=== PATIENT | female | born 1935 | race Caucasian/White ===

== ENCOUNTER 2020-02-27 13:58 | Inpatient (IN) | payer MEDICARE, MEDICAID ==
[~2020-02-27] VITALS: Ht 157.5 cm; Wt 68.0 kg
[2020-02-27 14:09] VITALS: BP 134/57
--- NOTE | 2020-02-27 14:28 | Emergency Room Report ---
History of Present Illness General Chief Complaint: Abnormal Labs Source: Patient, Family Member Present Illness HPI Patient sent to the emergency department from [facility] office. Apparently her potassium was 6 and her bicarbonate was low. Apparently she has been having some deterioration over the month. She denies any chest pain or shortness of breath. She does complain about mid back pain where she has a vertebral body fracture from a fall. This was diagnosed by an MRI. She fell a year ago in November. Apparently she has had some mild renal insufficiency before but not this severe. Patient is diabetic on oral medication. She also has hypertension. Hyperlipide glen. The patient denies exposure to Covid positive contacts. No fevers, chills, sore throat, palpitations, nausea, vomiting, diarrhea, dysuria, abdominal pain, rashes, depression, anxiety, visual changes, dizziness, headache. Allergies: Coded Allergies: No Known Allergies (Unverified , 02/27/20) COVID-19 Screening Contact w/high risk pt: No Experienced COVID-19 symptoms?: No COVID-19 Testing performed CROTCH BREAKER: Yes - Nov 2019 COVID-19 Screening: Negative COVID-19 COVID-19 Testing Source: [employer] Patient History Past Medical History: see triage record, other - Vertebral body fracture Past Surgical History: PTCA Social History: Denies: smoking, alcohol use, drug use Social History Narrative With daughter Reviewed Nursing Documentation: PMH: Agreed; PSxH: Agreed Nursing Documentation-PM Past Medical History: No History, Except For Hx Cardiac Problems: Yes - Stene 11/2019 Hx Hypertension: Yes Hx Pacemaker: No Hx Asthma: No Hx COPD: No Hx Diabetes: Yes Hx Cancer: No Hx Gastrointestinal Problems: No Hx Dialysis: No History Of Psychiatric Problem: No Hx Neurological Problems: No Hx Cerebrovascular Accident: No Hx Seizures: No Review of Systems All Other Systems: negative except mentioned in HPI Physical Exam Vital Signs Date Time Temp Pulse Resp B/P (MAP) Pulse Ox O2 Delivery O2 Flow Rate FiO2 02/27/20 14:01 98.4 65 14 134/57 (82) 97 Room Air Sp02 EP Interpretation: reviewed, normal General Appearance: well appearing, no apparent distress, GCS 15 Head: normocephalic Eyes: bilateral eye normal inspection, bilateral eye PERRL, bilateral eye EOMI ENT: moist mucus membranes - Slightly dry Neck: supple Respiratory: lungs clear, normal breath sounds Cardiovascular #1: regular rate, rhythm, no edema Cardiovascular #2: 2+ radial (R) Gastrointestinal: normal inspection, normal bowel sounds, non tender, no mass, non-distended Musculoskeletal: back normal - Mid back tenderness, normal range of motion, g ait/station normal Neurologic: alert, oriented x3, grossly normal Psychiatric: mood/affect normal Skin: no rash, warm/dry Procedures Critical Care Time Critical Care Time Total Critical Care Time: 30 min bedside evaluation and treatment excludes procedures (EKG). Reason for critical care: Hyperkalemia, metabolic acidosis, renal failure Possible complications: hypotension, hypertension, RI, shock, arrhythmias, metabolic acidosis, end organ damage, respiratory failure. Interventions: Treatment of hyperkalemia, evaluation of medications with pharmacy, discussions with family, repeat evaluations Course: Patient presents with possible electrolyte abnormalities. Determined to have significant hyperkalemia and metabolic acidosis. Hyperkalemia treated. Discussion with family regarding medications and previous medical conditions. Discussion with pharmacy regarding her medications possibly causing hyperkalemia and metabolic acidosis. Repeat evaluation, discussion with admitting physician. Consultations: nursing staff, multiple discussions with family, discussion with pharmacy, discussion with admitting physician Performed by: Dr. Winter Tolerated well condition = serious Medical Decision Making Diagnostic Impression: Primary Impression: Hyperkalemia Additional Impressions: Acute renal failure Qualified Codes: N17.9 - Acute kidney failure, unspecified Metabolic acidosis ER Course Patient presents with alleged abnormal labs. Patient appears somewhat dehydrated at this time. Differential includes acute renal failure, chronic renal failure, metabolic acidosis for other reasons amongst others. Evaluation with EKG, chest x-ray and labs. Renal ultrasound will be ordered. Patient appears slightly dry at this time and we will give her IV hydration. She has chronic back pain from a vertebral body fracture. Tylenol will be administered. EKG normal sinus rhythm and normal EKG. No peak T waves noted. Rate of 63. Chest x-ray normal. Called with K = 6.1. Bicarb also low. pH = 7.17. Calcium, bicarb and Kayexelate ordered. BUN 33 creat 1.6. With minimal renal dysfunction, consider medication cause. Discussed with Dr. Bowie, pharmacist and daughter. Daughter does not know why taking cyclosporine. 1655 Improved with treatment. No ectopy noted on panel monitor. Laboratory Tests Test 02/27/20 14:30 02/27/20 14:35 02/27/20 14:41 Urine Color Pale yellow Urine Appearance Clear Urine pH 5 (4.5-8.0) Urine Specific [place] 1.010 (1.005-1.035) Urine Protein 1+ (NEGATIVE) H Urine Glucose (UA) Negative (NEGATIVE) Urine Ketones Negative (NEGATIVE) Urine Blood Negative (NEGATIVE) Urine Nitrite Negative (NEGATIVE) Urine Bilirubin Negative (NEGATIVE) Urine Urobilinogen Normal MG/DL (0.0-1.0) Urine Leukocyte Esterase Negative (NEGATIVE) Urine RBC 0-2 /HPF (0 - 2) Urine WBC 0-2 /HPF (0 - 2) Urine Squamous Epithelial Cells Occasional /LPF Urine Bacteria Occasional /HPF (NONE) Urine Random Sodium 43 mmol/L (20-110) Urine Creatinine 59.3 MG/DL (30.0-125.0) White Blood Count 6.6 K/UL (4.8-10.8) Red Blood Count 3.07 M/UL (4.20-5.40) L Hemoglobin 9.2 G/DL (12.0-16.0) L Hematocrit 30.9 % (37.0-47.0) L Mean Corpuscular Volume 101 FL (80-99) H Mean Corpuscular Hemoglobin 30.0 PG (27.0-31.0) Mean Corpuscular Hemoglobin Concent 29.8 G/DL (32.0-36.0) L Red Cell Distribution Width 15.8 % (11.6-14.8) H Platelet Count 166 K/UL (150-450) Mean Platelet Volume 6.8 FL (6.5-10.1) Neutrophils (%) (Auto) 60.6 % (45.0-75.0) Lymphocytes (%) (Auto) 28.7 % (20.0-45.0) Monocytes (%) (Auto) 10.0 % (1.0-10.0) Eosinophils (%) (Auto) 0.0 % (0.0-3.0) Basophils (%) (Auto) 0.7 % (0.0-2.0) Prothrombin Time 11.2 SEC (9.30-11.50) Prothrombin Time INR 1.0 (0.9-1.1) Activated Partial Thromboplast Time 26 SEC (23-33) Sodium Level 135 MMOL/L (136-145) L Potassium Level 6.1 MMOL/L (3.5-5.1) *H Chloride Level 110 MMOL/L (98-107) H Carbon Dioxide Level 11 MMOL/L (21-32) L Anion Gap 14 mmol/L (5-15) Blood Urea Nitrogen 33 mg/dL (7-18) H Creatinine 1.6 MG/DL (0.55-1.30) H Estimated Glomerular Filtration Rate 30.9 mL/min (>60) Glucose Level 104 MG/DL (74-106) Calcium Level 8.6 MG/DL (8.5-10.1) Total Bilirubin 0.3 MG/DL (0.2-1.0) Aspartate Amino Transferase (AST) 13 U/L (15-37) L Alanine Aminotransferase (ALT) 18 U/L (12-78) Alkaline Phosphatase 51 U/L (46-116) Total Creatine Kinase 19 U/L (26-308) L Troponin I 0.002 ng/mL (0.000-0.056) C-Reactive Protein, Quantitative 0.9 mg/dL (0.00-0.90) Pro-B-Type Natriuretic Peptide 574 pg/mL (0-125) H Total Protein 7.3 G/DL (6.4-8.2) Albumin 3.8 G/DL (3.4-5.0) Globulin 3.5 g/dL Albumin/Globulin Ratio 1.1 (1.0-2.7) Lipase 321 U/L (73-393) Venous Blood pH 7.170 Venous Blood Partial Pressure CO2 27.7 Venous Blood Partial Pressure O2 24.5 Venous Blood HCO3 9.9 Venous Blood Total Carbon Dioxide 27.7 Venous Blood Base Excess -17.2 Venous Blood Carboxyhemoglobin 0.7 % (0.5-1.5) Methemoglobin 0.6 EKG Diagnostic Results Rate: normal Rhythm: NSR ST Segments: no acute changes Rhythm Strip Diag. Results EP Interpretation: yes Rhythm: NSR, no PVC's, no ectopy Chest X-Ray Diagnostic Results Chest X-Ray Diagnostic Results : Chest X-Ray Ordered: Yes # of Views/Limited/Complete: 1 View Indication: Other EP Interpretation: Yes Interpretation: no consolidation, no effusion, no pneumothorax Impression: No acute disease Electronically Signed by: Electronically signed by Guilherme Winter MD Last Vital Signs Date Time Temp Pulse Resp B/P (MAP) Pulse Ox O2 Delivery O2 Flow Rate FiO2 02/28/20 00:00 98.5 71 20 142/54 (83) 98 02/27/20 21:00 Room Air Status: improved Disposition: ADMITTED INPATIENT Condition: Serious Guilherme Winter MD Feb 27, 2020 14:28
[2020-02-27 14:46] LABS: BASOPHILS % (AUTO) 0.7 % (0.0-2.0); HEMATOCRIT 30.9 % (37.0-47.0); HEMOGLOBIN 9.2 G/DL (12.0-16.0); LYMPHOCYTES % (AUTO) 28.7 % (20.0-45.0); MEAN CORPUSCULAR VOLUME 101 FL (80-99); NEUTROPHILS % (AUTO) 60.6 % (45.0-75.0); PLATELET COUNT 166 K/UL (150-450); RED BLOOD COUNT 3.07 M/UL (4.20-5.40); RED CELL DISTRIBUTION WIDTH 15.8 % (11.6-14.8); WHITE BLOOD COUNT 6.6 K/UL (4.8-10.8)
[2020-02-27 15:10] LABS: ALANINE AMINOTRANSFERASE 18 U/L (12-78); ALBUMIN 3.8 G/DL (3.4-5.0); ALBUMIN/GLOBULIN RATIO 1.1 (1.0-2.7); ALKALINE PHOSPHATASE 51 U/L (46-116); ANION GAP 14 mmol/L (5-15); ASPARTATE AMINO TRANSFERASE 13 U/L (15-37); BILIRUBIN,TOTAL 0.3 MG/DL (0.2-1.0); BLOOD UREA NITROGEN 33 mg/dL (7-18); CALCIUM 8.6 MG/DL (8.5-10.1); CARBON DIOXIDE 11 MMOL/L (21-32); CHLORIDE 110 MMOL/L (98-107); CREATINE KINASE 19 U/L (26-308); CREATININE 1.6 MG/DL (0.55-1.30); SODIUM 135 MMOL/L (136-145)
[2020-02-27 15:11] LABS: POTASSIUM 6.1 MMOL/L (3.5-5.1)
[2020-02-27] MEDS ORDERED: Sodium Polystyrene Sulfonate 15gm Powder ORAL ONE (15:15)
[2020-02-27] MEDS ORDERED: Sodium Bicarbonate 50ml Carp IV ONE (15:15)
[2020-02-27] MEDS ORDERED: Calcium Gluconate 1gm/10ml vial IVP ONE (15:15)
[2020-02-27 15:18] LABS: APPEARANCE,URINE CLEAR; BILIRUBIN, URINE NEGATIVE (NEGATIVE); COLOR,URINE PALE YELLOW; GLUCOSE, URINE (UA) NEGATIVE (NEGATIVE); KETONES,URINE NEGATIVE (NEGATIVE); LEUKOCYTE ESTERASE ,URINE NEGATIVE (NEGATIVE); NITRITE,URINE NEGATIVE (NEGATIVE); PH,URINE 5 (4.5-8.0); PROTEIN,URINE 1+ (NEGATIVE); UROBILINOGEN,URINE NORMAL MG/DL (0.0-1.0)
[2020-02-27] MEDS ORDERED: DOCUSATE SODIU250 MG ORAL (15:18)
[2020-02-27] MEDS ORDERED: METOPROLOL TART25 MG ORAL (15:18)
[2020-02-27] MEDS ORDERED: ALLOPURINOL300 M1 ORAL (15:18)
[2020-02-27] MEDS ORDERED: NOVOLIN 70100 UNIT/2 SQ (15:18)
[2020-02-27] MEDS ORDERED: ATORVASTATIN CA40 MG ORAL (15:18)
[2020-02-27] MEDS ORDERED: RESTASIS1 EACH BOTH EYES (15:18)
[2020-02-27] MEDS ORDERED: IBUPROFEN600 M1 ORAL (15:29)
[2020-02-27] MEDS ORDERED: TRIBENZOR 40-11 EAC1 ORAL (15:29)
[2020-02-27] MEDS ORDERED: GABAPENTIN100 MG ORAL (15:29)
[2020-02-27] MEDS ORDERED: HYDRALAZINE HCL25 M1 ORAL (15:29)
[2020-02-27] MEDS ORDERED: Potassium chloride (15:29)
[2020-02-27] MEDS ORDERED: JANUMET 50-5001 EACH ORAL (15:29)
[2020-02-27] MEDS ORDERED: MEGESTROL ACETA40 MG PO (15:29)
[2020-02-27] MEDS ORDERED: PLAVIX75 MG ORAL (15:29)
[2020-02-27] MEDS ORDERED: K-TAB ER8 MEQ PO (15:29)
--- NOTE | 2020-02-27 16:51 | Diagnostic Imaging Report ---
Indication: Acute renal failure, right flank pain Technique: Grayscale and duplex images of the kidneys, retroperitoneum, and bladder were obtained. Comparison: none Findings: Right kidney measures 10.1 cm in length. Left kidney measures 10 point cm in length. Both kidneys demonstrate normal echogenicity. . Multiple cysts are seen in the right kidney. No focal abnormality. Normal inferior vena cava. Bladder is normal. Impression: Essentially unremarkable exam. Negative for hydronephrosis Incidental finding of right renal cysts.
--- NOTE | 2020-02-27 16:52 | History & Physical ---
History and Physical History & Physicial Patient presents to ER with severe metabolic acidosis. Patient fairly asymptomatic but noted to have elevated K and given kayexalate with some improvement. Repeat BMP demonstrated worsening acidosis and now being admitted for metabolic acidosis. Notes significant back pain as well and has compression fractures. No Alcohol use noted. no fevers. NO vomiting noted. No diarrhea. patient cared for by her daughter. care noted and reviewed Active Medications: IBUPROFEN 600 MG ORAL TABLET (IBUPROFEN) as needed JANUMET 50-500 MG ORAL TABLET (SITAGLIPTIN-METFORMIN HCL) Take one tablet daily POTASSIUM TABLET (POTASSIUM TABS) Take one tablet daily GABAPENTIN 100 MG ORAL CAPSULE (GABAPENTIN) Take one tablet daily CLOPIDOGREL BISULFATE 75 MG ORAL TABLET (CLOPIDOGREL BISULFATE) Take one tablet daily HYDRALAZINE HCL 25 MG ORAL TABLET (HYDRALAZINE HCL) Take one tablet daily [id number] 40-10-25 MG ORAL TABLET (YZQTBSTIPY-FBGUQXWROS-ZRSI) Take one tablet daily MEGESTROL ACETATE 40 MG ORAL TABLET (MEGESTROL ACETATE) Take one tablet daily DOCUSATE SODIUM 250 MG ORAL CAPSULE (DOCUSATE SODIUM) Take one tablet daily ATORVASTATIN CALCIUM 80 MG ORAL TABLET (ATORVASTATIN CALCIUM) Take one tablet daily METOPROLOL TARTRATE 25 MG ORAL TABLET (METOPROLOL TARTRATE) Take one tablet daily NOVOLIN 70/30 (70-30) 100 UNIT/ML SUBCUTANEOUS SUSPENSION (INSULIN NPH ISOPHANE & REGULAR) VITAMIN D TABLET (CHOLECALCIFEROL TABS) Take one tablet daily ALLOPURINOL 300 MG ORAL TABLET (ALLOPURINOL) Take one tablet daily Current Allergies: No known allergies No Known Drug Allergies Past History Past Medical History: hypertension diabetic stent Surgical History: right hand surgery-2012 Family History: Mother natural causes Father stroke Social History: , 4 children, lives in [place] with , no pets, retired. Risk Factors: Smoked Tobacco Use: Never smoker Caffeine Use: 2 drinks per day Dietary Counseling: yes Alcohol Use: no Drug Use: no Review of Systems General: fatigue Eyes: denies blurring, diplopia, irritation, discharge, vision loss, eye pain, photophobia Cardiovascular: has stents for CAD; under care of cardiology Musculoskeletal: back pain pain with activity Skin: denies rash, itching, dryness, suspicious lesions Neurologic: The patient was assessed for fall risk today. The patient was found to be at risk for falls. Patient was educated on methods for fall prevention, including use of proper footwear, keeping pathways clear, use of assistive devices and rising slowing when transitioning from the sitting position to standing. Psychiatric: denies depression, anxiety, memory loss, mental disturbance, suicidal ideation, hallucinations, paranoia Endocrine: denies cold intolerance, heat intolerance, polydipsia, polyphagia, polyuria, weight change Physical Exam General Appearance: well nourished, well hydrated, no acute distress Ear, Nose &Throat External Ears: normal, no lesions or deformities External Nose: normal, no lesions or deformities Neck Neck Exam: supple, no masses, trachea midline Thyroid Exam: no nodules, masses, tenderness, or enlargement Respiratory Respiratory Effort: no intercostal retractions or use of accessory muscles Palpation: normal fremitus Auscultation: no rales, rhonchi, or wheezes Cardiovascular Palpation: no thrill or palpable murmurs, no displacement of PMI Auscultation: S1, S2, no murmur, rub, or gallop Musculoskeletal Gait and Station: uses cane unsteady and weak Spine, ribs, pelvis: mid back pain noted with any activity and ROM Labs Test 02/27/20 14:30 02/27/20 14:35 02/27/20 14:41 Urine Color Pale yellow Urine Appearance Clear Urine pH 5 (4.5-8.0) Urine Specific [place] 1.010 (1.005-1.035) Urine Protein 1+ (NEGATIVE) Urine Glucose (UA) Negative (NEGATIVE) Urine Ketones Negative (NEGATIVE) Urine Blood Negative (NEGATIVE) Urine Nitrite Negative (NEGATIVE) Urine Bilirubin Negative (NEGATIVE) Urine Urobilinogen Normal MG/DL (0.0-1.0) Urine Leukocyte Esterase Negative (NEGATIVE) Urine RBC 0-2 /HPF (0 - 2) Urine WBC 0-2 /HPF (0 - 2) Urine Squamous Epithelial Cells Occasional /LPF Urine Bacteria Occasional /HPF (NONE) Urine Random Sodium 43 mmol/L (20-110) Urine Creatinine 59.3 MG/DL (30.0-125.0) White Blood Count 6.6 K/UL (4.8-10.8) Red Blood Count 3.07 M/UL (4.20-5.40) Hemoglobin 9.2 G/DL (12.0-16.0) Hematocrit 30.9 % (37.0-47.0) Mean Corpuscular Volume 101 FL (80-99) Mean Corpuscular Hemoglobin 30.0 PG (27.0-31.0) Mean Corpuscular Hemoglobin Concent 29.8 G/DL (32.0-36.0) Red Cell Distribution Width 15.8 % (11.6-14.8) Platelet Count 166 K/UL (150-450) Mean Platelet Volume 6.8 FL (6.5-10.1) Neutrophils (%) (Auto) 60.6 % (45.0-75.0) Lymphocytes (%) (Auto) 28.7 % (20.0-45.0) Monocytes (%) (Auto) 10.0 % (1.0-10.0) Eosinophils (%) (Auto) 0.0 % (0.0-3.0) Basophils (%) (Auto) 0.7 % (0.0-2.0) Prothrombin Time 11.2 SEC (9.30-11.50) Prothromb Time International Ratio 1.0 (0.9-1.1) Activated Partial Thromboplast Time 26 SEC (23-33) Sodium Level 135 MMOL/L (136-145) Potassium Level 6.1 MMOL/L (3.5-5.1) Chloride Level 110 MMOL/L (98-107) Carbon Dioxide Level 11 MMOL/L (21-32) Anion Gap 14 mmol/L (5-15) Blood Urea Nitrogen 33 mg/dL (7-18) Creatinine 1.6 MG/DL (0.55-1.30) Estimat Glomerular Filtration Rate 30.9 mL/min (>60) Glucose Level 104 MG/DL (74-106) Calcium Level 8.6 MG/DL (8.5-10.1) Total Bilirubin 0.3 MG/DL (0.2-1.0) Aspartate Amino Transf (AST/SGOT) 13 U/L (15-37) Alanine Aminotransferase (ALT/SGPT) 18 U/L (12-78) Alkaline Phosphatase 51 U/L (46-116) Total Creatine Kinase 19 U/L (26-308) Troponin I 0.002 ng/mL (0.000-0.056) C-Reactive Protein, Quantitative 0.9 mg/dL (0.00-0.90) Pro-B-Type Natriuretic Peptide 574 pg/mL (0-125) Total Protein 7.3 G/DL (6.4-8.2) Albumin 3.8 G/DL (3.4-5.0) Globulin 3.5 g/dL Albumin/Globulin Ratio 1.1 (1.0-2.7) Lipase 321 U/L (73-393) Venous Blood pH 7.170 Venous Blood Partial Pressure CO2 27.7 Venous Blood Partial Pressure O2 24.5 Venous Blood HCO3 9.9 Venous Blood Total Carbon Dioxide 27.7 Venous Blood Base Excess -17.2 Venous Blood Carboxyhemoglobin 0.7 % (0.5-1.5) Methemoglobin 0.6 IMPRESSION acute on chronic renal failure compression fractures hypertension CAD diabetes hyperkalemia metabolic acidosis PLAN bicarb infusion Kayexalate resume meds hold metformin and allopurinol renal to see impression, plan, and exam edited and reviewed in detail care discussed with Damian Lutz MD Feb 27, 2020 16:52
--- NOTE | 2020-02-27 16:52 | General Progress Note ---
Subjective Allergies: Coded Allergies: No Known Allergies (Unverified , 02/27/20) Objective Last 24 Hour Vital Signs Date Time Temp Pulse Resp B/P (MAP) Pulse Ox O2 Delivery O2 Flow Rate FiO2 02/27/20 14:09 98.4 65 14 134/57 97 Room Air 02/27/20 14:01 98.4 65 14 134/57 (82) 97 Room Air Laboratory Tests 02/27/20 14:30: Urine Color Pale yellow, Urine Appearance Clear, Urine pH 5, Urine Specific [place] 1.010, Urine Protein 1+H, Urine Glucose (UA) Negative, Urine Ketones Negative, Urine Blood Negative, Urine Nitrite Negative, Urine Bilirubin Negative, Urine Urobilinogen Normal, Urine Leukocyte Esterase Negative, Urine RBC 0-2, Urine WBC 0-2, Urine Squamous Epithelial Cells Occasional, Urine Bacteria Occasional, Urine Random Sodium 43, Urine Creatinine 59.3 02/27/20 14:35: White Blood Count 6.6, Red Blood Count 3.07L, Hemoglobin 9.2L, Hematocrit 30.9L, Mean Corpuscular Volume 101H, Mean Corpuscular Hemoglobin 30.0, Mean Corpuscular Hemoglobin Concent 29.8L, Red Cell Distribution Width 15.8H, Platelet Count 166, Mean Platelet Volume 6.8, Neutrophils (%) (Auto) 60.6, Lymphocytes (%) (Auto) 28.7, Monocytes (%) (Auto) 10.0, Eosinophils (%) (Auto) 0.0, Basophils (%) (Auto) 0.7, Prothrombin Time 11.2, Prothromb Time International Ratio 1.0, Activated Partial Thromboplast Time 26, Sodium Level 135L, Potassium Level 6.1*H , Chloride Level 110H, Carbon Dioxide Level 11L, Anion Gap 14, Blood Urea Nitrogen 33H, Creatinine 1.6H, Estimat Glomerular Filtration Rate 30.9, Glucose Level 104, Calcium Level 8.6, Total Bilirubin 0.3, Aspartate Amino Transf (AST/SGOT) 13L, Alanine Aminotransferase (ALT/SGPT) 18, Alkaline Phosphatase 51, Total Creatine Kinase 19L, Troponin I 0.002, C-Reactive Protein, Quantitative 0.9, Pro-B-Type Natriuretic Peptide 574H, Total Protein 7.3, Albumin 3.8, Globulin 3.5, Albumin/Globulin Ratio 1.1, Lipase 321 02/27/20 14:41: Venous Blood pH 7.170, Venous Blood Partial Pressure CO2 27.7, Venous Blood Partial Pressure O2 24.5, Venous Blood HCO3 9.9, Venous Blood Total Carbon Dioxide 27.7, Venous Blood Base Excess -17.2, Venous Blood Carboxyhemoglobin 0.7, Methemoglobin 0.6 Height (Feet): 5 Height (Inches): 3.00 Weight (Pounds): 150 Damian Bowie MD Feb 27, 2020 16:52
[2020-02-27 17:22] VITALS: BP 116/59
--- NOTE | 2020-02-27 17:33 | Diagnostic Imaging Report ---
Indication: Dyspnea Technique: One view of the chest Comparison: none Findings: The heart size is upper limits of normal. The lungs and pleural space are clear. The aorta is tortuous and calcified Impression: No acute process
[2020-02-27] MEDS: NovoLOG Insulin Flexpen SUBQ SCH (21:00)
[2020-02-27] MEDS ORDERED: Atorvastatin 80mg tab ORAL SCH (21:00)
[2020-02-27] MEDS: Sodium Citrate 30ml ORAL SCH (22:10)
[2020-02-27] MEDS: Sodium Bicarbonate 100 ML in Sodium Chloride 1,000 ML IV SCH (22:10)
[2020-02-28] VITALS: BP 142/54
[2020-02-28 04:00] VITALS: BP_SYST 100; BP_SYST 124; BP_DIAS 48; BP_DIAS 51
[2020-02-28] MEDS: NovoLOG Insulin Flexpen SUBQ SCH ×3 (06:30→17:09)
[2020-02-28 07:06] LABS: BLOOD UREA NITROGEN 30 mg/dL (7-18); CARBON DIOXIDE 15 MMOL/L (21-32); CHLORIDE 112 MMOL/L (98-107); CREATININE 1.4 MG/DL (0.55-1.30); POTASSIUM 4.8 MMOL/L (3.5-5.1); SODIUM 139 MMOL/L (136-145)
[2020-02-28 07:12] LABS: BASOPHILS % (AUTO) 0.7 % (0.0-2.0); HEMATOCRIT 25.5 % (37.0-47.0); HEMOGLOBIN 8.4 G/DL (12.0-16.0); MEAN CORPUSCULAR VOLUME 91 FL (80-99); MONOCYTES % (AUTO) 10.8 % (1.0-10.0); NEUTROPHILS % (AUTO) 57.5 % (45.0-75.0); PLATELET COUNT 162 K/UL (150-450); RED CELL DISTRIBUTION WIDTH 16.4 % (11.6-14.8); WHITE BLOOD COUNT 4.2 K/UL (4.8-10.8)
[2020-02-28 08:00] VITALS: BP 143/55
--- NOTE | 2020-02-28 08:33 | General Progress Note ---
Subjective Allergies: Coded Allergies: No Known Allergies (Unverified , 02/27/20) Subjective improved K better Objective Last 24 Hour Vital Signs Date Time Temp Pulse Resp B/P (MAP) Pulse Ox O2 Delivery O2 Flow Rate FiO2 02/28/20 08:00 97.4 68 18 143/55 (84) 100 02/28/20 04:00 98.3 61 18 124/51 (75) 98 02/28/20 03:35 57 02/28/20 00:00 98.5 71 20 142/54 (83) 98 02/27/20 23:32 58 02/27/20 22:09 61 150/55 02/27/20 21:00 Room Air 02/27/20 20:30 Room Air 02/27/20 20:15 98.5 65 18 121/74 98 Room Air 02/27/20 17:22 98.5 61 16 116/59 98 Room Air 02/27/20 15:11 98.5 02/27/20 14:09 98.4 65 14 134/57 97 Room Air 02/27/20 14:01 98.4 65 14 134/57 (82) 97 Room Air Intake and Output 02/27/20 02/28/20 19:00 07:00 Intake Total 1273 ml Balance 1273 ml Intake Oral 490 ml IV Total 783 ml # Voids 4 # Bowel Movements 1 Laboratory Tests 02/27/20 14:30: Urine Color Pale yellow, Urine Appearance Clear, Urine pH 5, Urine Specific [place] 1.010, Urine Protein 1+H, Urine Glucose (UA) Negative, Urine Ketones Negative, Urine Blood Negative, Urine Nitrite Negative, Urine Bilirubin Negative, Urine Urobilinogen Normal, Urine Leukocyte Esterase Negative, Urine RBC 0-2, Urine WBC 0-2, Urine Squamous Epithelial Cells Occasional, Urine Bacteria Occasional, Urine Random Sodium 43, Urine Creatinine 59.3 02/27/20 14:35: White Blood Count 6.6, Red Blood Count 3.07L, Hemoglobin 9.2L, Hematocrit 30.9L, Mean Corpuscular Volume 101H, Mean Corpuscular Hemoglobin 30.0, Mean Corpuscular Hemoglobin Concent 29.8L, Red Cell Distribution Width 15.8H, Platelet Count 166, Mean Platelet Volume 6.8, Neutrophils (%) (Auto) 60.6, Lymphocytes (%) (Auto) 28.7, Monocytes (%) (Auto) 10.0, Eosinophils (%) (Auto) 0.0, Basophils (%) (Auto) 0.7, Prothrombin Time 11.2, Prothromb Time International Ratio 1.0, Activated Partial Thromboplast Time 26, Sodium Level 135L, Potassium Level 6.1*H , Chloride Level 110H, Carbon Dioxide Level 11L, Anion Gap 14, Blood Urea Nitrogen 33H, Creatinine 1.6H, Estimat Glomerular Filtration Rate 30.9, Glucose Level 104, Calcium Level 8.6, Total Bilirubin 0.3, Aspartate Amino Transf (AST/SGOT) 13L, Alanine Aminotransferase (ALT/SGPT) 18, Alkaline Phosphatase 51, Total Creatine Kinase 19L, Troponin I 0.002, C-Reactive Protein, Quantitative 0.9, Pro-B-Type Natriuretic Peptide 574H, Total Protein 7.3, Albumin 3.8, Globulin 3.5, Albumin/Globulin Ratio 1.1, Lipase 321 02/27/20 14:41: Venous Blood pH 7.170, Venous Blood Partial Pressure CO2 27.7, Venous Blood Partial Pressure O2 24.5, Venous Blood HCO3 9.9, Venous Blood Total Carbon [place] xide 27.7, Venous Blood Base Excess -17.2, Venous Blood Carboxyhemoglobin 0.7, Methemoglobin 0.6 02/27/20 21:42: POC Whole Blood Glucose 76 02/28/20 05:21: White Blood Count 4.2L, Red Blood Count 2.80L, Hemoglobin 8.4L, Hematocrit 25.5L , Mean Corpuscular Volume 91#, Mean Corpuscular Hemoglobin 30.0, Mean Corpuscular Hemoglobin Concent 32.9, Red Cell Distribution Width 16.4H, Platelet Count 162, Mean Platelet Volume 7.2, Neutrophils (%) (Auto) 57.5, Lymphocytes (%) (Auto) 31.0, Monocytes (%) (Auto) 10.8H, Eosinophils (%) (Auto) 0.0, Basophils (%) (Auto) 0.7, Sodium Level 139, Potassium Level 4.8, Chloride Level 112H, Carbon Dioxide Level 15L, Blood Urea Nitrogen 30H, Creatinine 1.4H, Estimat Glomerular Filtration Rate 36.0, Glucose Level 85, Calcium Level 9.0 02/28/20 05:42: POC Whole Blood Glucose 88 Height (Feet): 5 Height (Inches): 2.00 Weight (Pounds): 150 Objective WDWN NAD clear breath sounds bilaterally without rhonchi or wheeze [id number] without MRG NABS nontender no HSM no CCE nonfocal Assessment/Plan Assessment/Plan: IMPRESSION acute on chronic renal failure compression fractures hypertension CAD diabetes hyperkalemia metabolic acidosis PLAN bicarb infusion as is Kayexalate with improvement resume meds hold metformin and allopurinol renal follow up monitor BMP in am impression, plan, and exam edited and reviewed in detail care discussed with Damian Lutz MD Feb 28, 2020 08:33
[2020-02-28] MEDS: HydrALAZINE 25mg tab ORAL SCH ×2 (09:00→17:03)
[2020-02-28] MEDS ORDERED: Docusate 250mg cap ORAL SCH (09:00)
[2020-02-28] MEDS ORDERED: hydroCHLOROthiazide 25mg cap ORAL SCH (09:00)
[2020-02-28] MEDS ORDERED: Irbesartan 150mg tablet ORAL SCH (09:00)
[2020-02-28] MEDS: Sodium Bicarbonate 100 ML in Sodium Chloride 1,000 ML IV SCH (09:30)
[2020-02-28] MEDS: Sodium Citrate 30ml ORAL SCH ×3 (10:18→17:13)
[2020-02-28 12:00] VITALS: BP 131/67
--- NOTE | 2020-02-28 14:30 | Consultation ---
DATE OF CONSULTATION: 02/28/2020 NEPHROLOGY CONSULTATION CONSULTING PHYSICIAN: Macario Friedman MD. ATTENDING PHYSICIAN: Damian Bowie MD. REASON FOR CONSULTATION: Metabolic acidosis and hyperkalemia. HISTORY OF PRESENT ILLNESS: This is an 84-year-old Urdu [place] female, who presented to the ED with abnormal laboratory results, basically asymptomatic with metabolic acidosis and hyperkalemia. For this reason, I have been asked to render my opinion in nephrology consultation. This patient speaks only Urdu. PAST MEDICAL HISTORY: 1. Type 2 diabetes mellitus. 2. Degenerative joint disease. 3. Peripheral vascular disease. 4. Gastritis. 5. Hypercholesterolemia. 6. Hyperuricemia. 7. Ischemic heart disease, status post stenting. 8. Anemia, rule out GI bleed may be caused by nonsteroidal anti-inflammatory agents. HOME MEDICATIONS: 1. Ibuprofen. 2. Janumet. 3. Potassium chloride. 4. Neurontin. 5. Plavix. 6. Hydralazine. 7. Olmesartan/amlodipine/hydrochlorothiazide. 8. Megace. 9. Atorvastatin. 10. Metoprolol. 11. Novolin 70/30. 12. Vitamin D. 14. Allopurinol. ALLERGIES: No known drug allergies. FAMILY HISTORY: Unable to obtain. SOCIAL HISTORY: Unable to obtain. REVIEW OF SYSTEMS: Unable to obtain. PHYSICAL EXAMINATION: GENERAL: This is an elderly female, who is in no acute distress. VITAL SIGNS: Blood pressure 143/55, pulse 68 regular, respirations 20, and temperature 98. HEENT: The head is normocephalic and atraumatic. Pupils are equal, round, and reactive to light and accommodation consensually. NECK: Supple. Trachea midline. There was no lymphadenopathy or thyromegaly. LUNGS: Clear to auscultation and percussion. HEART: Regular rate and rhythm without rubs, murmurs, or gallops. ABDOMEN: Soft and nontender. Bowel sounds were active. EXTREMITIES: No clubbing, cyanosis, or edema. NEUROLOGIC: She is alert. There were no gross focal findings. LABORATORY AND ANCILLARY DATA: CBC on admission hematocrit of 30.9, today 25.5, otherwise within normal limits. Chemistry, on admission CO2 level was notable for being low at 15, BUN 30, creatinine 1.4. Urinalysis unremarkable. INR 1. ABGs on admission, pH 7.17, pCO2 27.7, bicarbonate is 9.9. IMAGING REPORTS: Renal ultrasound unremarkable. Chest x-ray, no acute process. ASSESSMENT: Metabolic acidosis, most likely chronic due to polypharmacy including metformin, and nonsteroidal anti-inflammatory agents. PLAN: 1. Already implemented given IV fluids and bicarbonate and discontinuing metformin. 2. Avoid the polypharmacy as exhibited by this patient before admission. Thank you, Dr. Bowie, for letting me to participate in the care of this patient. Macario Friedman M.D. DR: WHITNEY JOB#: [id number] CC: BECCA
--- NOTE | 2020-02-28 15:58 | Diagnostic Imaging Report ---
EXAM: US Duplex Bilateral Lower Extremities Veins CLINICAL HISTORY: DVT TECHNIQUE: Real-time duplex ultrasound scan of the bilateral lower extremity veins integrating B-mode two-dimensional vascular structure, Doppler spectral analysis, color flow Doppler imaging and compression. COMPARISON: None. FINDINGS: Right deep veins: Unremarkable. No DVT in the right common femoral, femoral, proximal deep femoral or popliteal veins. The veins demonstrate normal color flow, are normally compressible, with normal phasic flow and/or augmentation response. Right superficial veins: Unremarkable. No thrombus in the visualized right great saphenous vein. Left deep veins: Unremarkable. No DVT in the left common femoral, femoral, proximal deep femoral or popliteal veins. The veins demonstrate normal color flow, are normally compressible, with normal phasic flow and/or augmentation response. Left superficial veins: Unremarkable. No thrombus in the visualized left great saphenous vein. Soft tissues: No acute findings. No popliteal cyst. IMPRESSION: No ultrasonographic evidence of deep venous thrombosis involving the bilateral lower extremities.
[2020-02-28 16:00] VITALS: BP 108/73
[2020-02-28 17:03] VITALS: BP 108/73
--- NOTE | 2020-02-29 17:54 | Cardiology Report ---
APPROVED REPORT EKG Measurement Heart [id number] <Conclusion> Normal sinus rhythm Normal ECG
--- NOTE | 2020-03-03 11:35 | Discharge Summary ---
Discharge Summary Discharge Summary _ DATE OF ADMISSION: 02/27/2020 DATE OF DISCHARGE: 02/28/2020 Patient left AGAINST MEDICAL ADVICE REASON FOR ADMISSION: 84 years old female with past medical history of coronary artery disease status post stent placement in November 2019, hypertension, diabetes mellitus, mild renal insufficiency, was sent to emergency department from the primary medical doctor office. Apparently her potassium was 6 and bicarbonate was low. Family reported some deterioration over the month. Patient by herself denied chest pain and shortness of breath. She complained of mid back pain ( patient had a vertebral body fracture secondary to fall diagnosed by MRI a year ago). Upon evaluation vital signs were stable. Laboratory work-up revealed no leukocytosis ,hemoglobin 9.2, hematocrit 30.9, platelet count 166. BUN 33, creatinine 1.6. Potassium 6.1. Glucose 104. Stable LFT and lipase. Troponin 0 0.002. EKG revealed sinus rhythm, no acute ischemic changes, no peaked T waves. Urinalysis revealed no evidence of urinary tract infection +1 protein. Chest x-ray demonstrated no acute cardiopulmonary pathology. Renal ultrasound was essentially negative. No evidence of hydronephrosis ' bilateral normal kidney echogenicity. Venous gases revealed pH 7.17, PCO2 27.7, bicarb 9.9. Patient admitted with acute renal failure , hyperkalemia and metabolic acidosis. CONSULTANTS: hay chopper Dr. Friedman [facility]SE: Patient admitted to telemetry floor. Hyperkalemia was treated . Patient started on bicarbonate infusion . Home medication resumed. Metformin and allopurinol both were hold. Therapy Assistant seen and evaluated patient . Therapy Assistant recommended avoid polypharmacy, sepcifically nonsteroid anti- inflammatory agent and Metformin at this time as contributing to acute renal failure. Hyperkalemia resolved. Creatinine down to 1.4. On 02/27 in the evening patient decided to leave AGAINST MEDICAL ADVICE. The risks and consequences of signing AGAINST MEDICAL ADVICE were discussed with patient in detail. Patient verbalized understanding, nevertheless signed AMA form and left. FINAL DIAGNOSES: Acute on chronic renal failure Hyperkalemia -resolved Coronary artery disease HTN Metabolic acidosis Compression fracture Diabetes I have been assigned to dictate discharge summary for this account. I was not involved in the patient's management. Lorena Sy NP Mar 03, 2020 11:35
== END 2020-02-28 20:30 | disposition left against medical advice (07) | DRG 683 ==
LOC: EMR 14:20 → 2E 15:50 → EDBEDREQ 18:41 → 2E 02-28 00:29
DX: N17.9 Acute kidney failure, unspecified (principal); E87.2 Acidosis; E87.5 Hyperkalemia; I25.10 Atherosclerotic heart disease of native coronary artery without angina pectoris; Z95.5 Presence of coronary angioplasty implant and graft; I12.9 Hypertensive chronic kidney disease with stage 1 through stage 4 chronic kidney disease, or unspecified chronic kidney disease; E11.22 Type 2 diabetes mellitus with diabetic chronic kidney disease; N18.9 Chronic kidney disease, unspecified; Z79.4 Long term (current) use of insulin; S32.009D Unspecified fracture of unspecified lumbar vertebra, subsequent encounter for fracture with routine healing; W19.XXXD Unspecified fall, subsequent encounter
CPT/HCPCS: 36415; 71045; 76770; 80048; 80053; 81003; 82550; 82570; 82803; 82962; 83690; 83880; 84300; 84484; 85025; 85610; 85730; 86140; 93005; 93970; 96374; 96375; 99291; J1815; J7030